=== PATIENT | female | born 1990 | race Caucasian/White ===

== ENCOUNTER 2017-12-03 01:54 | Inpatient (IN) | END 2017-12-03 17:35 | disposition home or self-care (01) | DRG 770 ==

== ENCOUNTER 2019-01-10 17:52 | Outpatient (CLI) | payer OTHER ==
[~2019-01-10] VITALS: Ht 157.5 cm; Wt 98.8 kg
[2019-01-10 18:10] VITALS: Ht 157.5 cm; Wt 98.8 kg
--- NOTE | 2019-01-10 20:54 | PN ---
Date/Time of Note Date/Time of Note DATE: 01/10/19 TIME: 20:52 OB Subjective Subjective Subjective IUP 38 6/7 c/o epigastric pain r/o labor h/o CS X 1 OB Objective Heart: Rhythm Normal Abdomen: WNL Cervical Dilatation: None Membranes: Intact Contractions on Admission: >10 Minutes Apart Intensity: Mild OB Assessment/Plan Reason for admission: other (IUP 38 6/7, h/o CS x1, r/o labor, pain level 3/10) Induction Method: other (IV hydration, NST) ENE GILMAN MD January 10, 2019 20:54
[2019-01-10] MEDS ORDERED: LACTATED RINGER'S 1,000 ML IV SCH (21:00)
[2019-01-10] MEDS ORDERED: LACTATED RINGER'S 1,000 ML IV ONE (21:00)
--- NOTE | 2019-01-11 00:37 | TRIAGE ---
OB Triage Datetime Report Generated by CPN: 01/11/2019 00:37 Datetime: 01/10/2019 19:28 Stage of : OB Triage Monitor Mode: External Resting Tone [place]: Relaxed Monitor Mode: External US Datetime: 01/10/2019 19:17 Membrane Status: Intact Datetime: 01/10/2019 19:14 Stage of : OB Triage Labor Evaluation Frequency: 3-6 Monitor Mode: External Duration (sec)2399: 30-90 Quality: Mild Pattern: Normal: <= 5 Contractions in 10 Minutes Resting Tone [place]: Relaxed Heart Rate FHR Baseline Rate: 130 Monitor Mode: External US FHR Baseline Changes: No Baseline Change Variability: Moderate 6-25 bpm Accelerations: 15X15 Decelerations: None Category: Category I Pain Assessment Pain Scale: 5 Pain Presence: Intermittent Pain Type: Pressure; Ache Pain Location: Back Datetime: 01/10/2019 18:36 Vaginal Exam Dilatation (cms): 1.0 Effacement (%): 50 Station: -2 Exam By: Vitaliy RG Vaginal Bleeding: None Cervix, Consistency: Soft Cervix, Position: Posterior Presentation 'A': Cephalic Datetime: 01/10/2019 18:35 Labor Evaluation Frequency: 13-15 Monitor Mode: External Duration (sec)2399: 50-70 Quality: Mild Pattern: Normal: <= 5 Contractions in 10 Minutes Resting Tone [place]: Relaxed Heart Rate FHR Baseline Rate: 135 Monitor Mode: External US Variability: Moderate 6-25 bpm Accelerations: 10X10 Decelerations: None Category: Category I Pain Assessment Pain Scale: 6 Pain Goal: 3 Datetime: 01/10/2019 18:15 Assessment Type: Triage Maternal Assessment Level of Consciousness: Fully Conscious DTR's/Clonus: DTRs 2+; No Clonus Headache: Denies Blurred Vision: No Respiratory Effort: Unlabored; Regular Rhythm; Equal Expansion Breath Sounds, Left: Clear and Equal Breath Sounds, Right: Clear and Equal Nausea/Vomiting: Denies RUQ Epigastric Pain: Denies Lower Extremities Edema: None Degree: None Upper Extremities Edema: None Degree: None Facial Edema: None Fall Risk Assessment History of Falling: (0) No Secondary Diagnosis: (0) No Ambulatory Aid: (0) Bedrest/Nurse Assist IV Therapy: (0) No Gait: (0) Normal/Bedrest/Immobile Mental Status: (0) Oriented to Own Ability Fall Score: 0 Fall Risk Score Definition: No Risk: No action required Datetime: 01/10/2019 18:12 Time of Arrival: 01/10/2019 17:40 EGA: 38.6 Arrived By: Wheelchair Arrived From: Home Chief Complaint: c/o cramping on and off since this morning. Movement: Present Contractions: Irregular Rupture of Membranes: Denies Vaginal Discharge: Denies Recent Sexual Intercouse: Denies Abdominal Trauma: Not Applicable Patient Complaints: Cramping Additional Patient Complaints: Hx c/s x 1 Time Provider Notified: 01/10/2019 19:00 Provider Notified: Dr Pires Initial Plan: MONITOR, VE
== END 2019-01-10 22:57 | disposition home or self-care (01) ==
LOC: OBT 17:52 → L-D 17:53 → OBT 22:57
PROVIDERS: ATTEND Obstetrics & Gynecology
DX: O26.893 Other specified pregnancy related conditions, third trimester (principal); R10.13 Epigastric pain; O34.212 Maternal care for vertical scar from previous cesarean delivery; Z3A.38 38 weeks gestation of pregnancy
CPT/HCPCS: 36415; 96360; J7120; Z7500; G0463

== ENCOUNTER 2019-01-13 07:14 | Inpatient (IN) | payer OTHER ==
[~2019-01-13] VITALS: Ht 160 cm; Wt 98.5 kg
[2019-01-13 07:50] VITALS: BP 110/83; PULSE 92; RESP 18
[2019-01-13 07:52] VITALS: Ht 160 cm; Wt 98.5 kg
[2019-01-13] MEDS ORDERED: OXYTOCIN 30 UNITS/LR 500 ML IV PRN ×2 (08:00→12:30)
[2019-01-13] MEDS ORDERED: METHYLERGONOVINE 0.2 MG INJ IM PRN ×2 (08:00→12:30)
[2019-01-13] MEDS ORDERED: MISOPROSTOL 200 MCG TAB PR PRN ×2 (08:00→12:30)
[2019-01-13] MEDS ORDERED: CARBOPROST 250 MCG INJ IM PRN ×2 (08:00→12:30)
--- NOTE | 2019-01-13 08:46 | PREAC ---
Date/Time of Note Date/Time of Note DATE: 01/13/19 TIME: 08:45 Anesthesia Eval and Record Evaluation Time Pre-Procedure Interview DATE: 01/13/19 TIME: 08:45 Age 28 Sex female NPO: 8 hrs Preoperative diagnosis iup at 39 weeks Planned procedure repeat c section Past Medical History Past Medical History: Includes GI: Obesity Surgery & Anesthesia Issues No known issue Meds Anticoagulation: No Beta Mariusz within 24 hr: No Reason Beta Mariusz not given: Pt. not on B-Mariusz Reported Medications [none] Unknown Strength No Conflict Check 12/02/17 Current Medications Oxytocin/Lactated Ringer's 500 ml @ 0 mls/hr ONCE PRN IV .VAGINAL BLEEDING; Start 01/13/19 at 08:00 Methylergonovine Maleate (Methergine) 0.2 mg ONCE PRN IM .VAGINAL BLEEDING; Start 01/13/19 at 08:00 Carboprost Tromethamine (Hemabate) 250 mcg ONCE PRN IM .VAGINAL BLEEDING; Start 01/13/19 at 08:00 Misoprostol (Cytotec) 1,000 mcg ONCE PRN NV .VAGINAL BLEEDING; Start 01/13/19 at 08:00 Lactated Ringer's 1,000 ml @ 125 mls/hr Q8H IV ; Start 01/13/19 at 08:00 Meds reviewed: Yes Allergies Coded Allergies: No Known Allergy (Unverified , 12/02/17) Allergies Reviewed: Yes Labs/Studies Labs Reviewed: Reviewed by anesthesiologist Result Diagram: 01/13/19 0810 Laboratory Tests 01/13/19 08:10 test: Positive Pre-procedure Exam Last vitals Vital Signs Date Temp Pulse Resp B/P (MAP) Pulse Ox O2 O2 Flow FiO2 Time Delivery Rate 01/13/19 98.2 92 18 110/83 07:50 (92) Airway: Adequate mouth opening, Adequate thyromental dist Mallampati: Mallampati II Teeth: Normal Lung: Normal Heart: Normal ASA Physical Status ASA physical status: 2 Emergency: None Planned Anesthetic Neuraxial: Spinal Planned Pain Management Sub-arachniod narcotics Pre-operative Attestations Prior to commencing anesthesia and surgery, the patient was re-evaluated, there was verification of: *The patient's identity *The results of appropriate recent lab work and preoperative vital signs *The above evaluation not changing prior to induction *Anesthetic plan, risk benefits, alternative and complications discussed with patient/family; questions answered; patient/family understands, accepts and wishes to proceed. ALEC RICO January 13, 2019 08:46
[2019-01-13] MEDS ORDERED: morphine SULFATE/PF (10 MG/10 ML) INJ ONE (08:47)
[2019-01-13] MEDS ORDERED: FENTAnyl 50 MCG/ML VIAL ONE (08:48)
[2019-01-13] MEDS: LACTATED RINGER'S 1,000 ML IV SCH ×2 (08:50→17:39)
[2019-01-13] MEDS ORDERED: CEFAZOLIN 2 GM/50 ML (PMX) 50 ML IVPB ONE (09:38)
[2019-01-13] MEDS ORDERED: PHENYLephrine (100 MCG/ML) 10ML SYG ONE (09:44)
[2019-01-13] MEDS ORDERED: PHENYLephrine 10 MG INJ ONE (09:44)
--- NOTE | 2019-01-13 09:52 | PREOPHP ---
DATE OF ADMISSION: 01/13/2019 HISTORY OF PRESENT ILLNESS: Ms. Julieta Garcia is a 28-year-old 3, para 1, EDC 01/18/2019, i ntrauterine at 39 weeks gestational age, admitted today for elective repeat delive ry. She denies any contractions, vaginal bleeding, or discharge. Her care took place with Dr. Black. PAST MEDICAL HISTORY: None. MEDICATIONS: vitamins. PAST SURGICAL HISTORY: x1 previous section. OBSTETRIC HISTORY: x1 previous , x1 missed AB. GYNECOLOGIC HISTORY: 12, regular 3 to 4 days. She denies any sexually transmitted infection. Sexua lly active with 1 partner. SOCIAL HISTORY: She denies any smoking, drugs or alcohol. FAMILY HISTORY: None. REVIEW OF SYSTEMS: All within normal except history of present illness. PHYSICAL EXAMINATION: HEENT: Within normal. LUNGS: CTA bilateral. CARDIOVASCULAR: S1, S2, regular rhythm. ABDOMEN: Gravid, nontender. Negative CVA bilateral. Positive vertical scar secondary to history of previous section. EXTREMITIES: Negative edema. No calf tenderness. PELVIC: Vaginal exam deferred. heart tracing category 1. ASSESSMENT: Intrauterine at 39 weeks' gestational age, previous section x1, antoinette es elective repeat delivery. Declined vaginal after . PLAN: Consent for repeat delivery. Risks, benefits and alternatives explained. All questi ons were answered. Dictated By: VANGIE OSPINA/NTS Conf#: [id number] DID#: [id number] CC: VANGIE FAIRBANKS MD;*EndCC*
[2019-01-13] MEDS ORDERED: ONDANSETRON 4 MG INJ ONE (10:28)
[2019-01-13] MEDS ORDERED: DEXAMETHASONE 4 MG/ML 1 ML INJ ONE (10:28)
[2019-01-13] MEDS ORDERED: HYDROmorphONE 0.5 MG/0.5 ML SYG IV PRN ×2 (11:00)
[2019-01-13] MEDS ORDERED: NALOXONE (0.4 MG/ML) INJ IV PRN (11:00)
[2019-01-13] MEDS ORDERED: ZOLPIDEM 5 MG TAB PO PRN (11:00)
[2019-01-13] MEDS ORDERED: DIPHENHYDRAMINE 50 MG INJ IV PRN (11:00)
[2019-01-13] MEDS ORDERED: ONDANSETRON 4 MG INJ IV PRN (11:00)
--- NOTE | 2019-01-13 12:04 | OPPN ---
Date/Time of Note Date/Time of Note DATE: 01/13/19 TIME: 11:55 Operative Report Planned Procedure Procedure date January 13, 2019 Procedure(s) repeat low transverse CD Performed by see signature line Floor Representative: SAVANNA HERNANDEZ MD 2nd Floor Representative none Anesthesiologist: ALEC RICO Pre-procedure diagnosis iup at 39 wks ga, previous CD, desires elective repeat CD [id number] Anesthesia Type: Npukp2a spinal Post-Procedure Post-procedure diagnosis same Findings A viable female 9/9 weight 7lb 9 oz, normal uterus, tubes and ovaries Estimated Blood Loss: 500 - 600 mls Specimen(s) none Grafts/Implant(s) none Complication(s) none VANGIE FAIRBANKS MD January 13, 2019 12:04
[2019-01-13] MEDS ORDERED: OXYTOCIN 30 UNITS/LR 500 ML IV SCH (12:05)
[2019-01-13] MEDS: CEFAZOLIN 2 GM/50 ML (PMX) 50 ML IVPB SCH ×2 (12:21→21:25)
[2019-01-13] MEDS: KETOROLAC 30 MG INJ IV PRN ×2 (12:22→21:01)
[2019-01-13] MEDS ORDERED: OXYCODONE/ACETAMINOPHEN (5/325) TAB PO PRN (12:30)
[2019-01-13] MEDS ORDERED: NACL 0.9% 3 ML SYG IV SCH (12:30)
[2019-01-13] MEDS ORDERED: LANOLIN HPA 1 PKT TOP PRN (12:30)
--- NOTE | 2019-01-13 12:41 | PAC ---
Date/Time of Note Date/Time of Note DATE: 01/13/19 TIME: 12:41 Post-Anesthesia Notes Post-Anesthesia Note Last documented vital signs Vital Signs Date Temp Pulse Resp B/P (MAP) Pulse Ox O2 O2 Flow FiO2 Time Delivery Rate 01/13/19 98.2 92 18 110/83 1240 (92) Activity: WNL Respiratory function: WNL Cardiovascular function: WNL Mental status: Baseline Pain reasonably controlled: Yes Hydration appropriate: Yes Nausea/Vomiting absent: Yes ALEC RICO January 13, 2019 12:41
[2019-01-13 13:30] VITALS: BP 122/72; PULSE 62; RESP 18
[2019-01-13 14:30] VITALS: BP 112/64; PULSE 65; RESP 19
[2019-01-13 16:00] VITALS: BP 116/66; PULSE 66; RESP 18
[2019-01-13 19:40] VITALS: BP 126/76; PULSE 72; RESP 19
[2019-01-14] MEDS: LACTATED RINGER'S 1,000 ML IV SCH ×3 (02:32→16:00)
[2019-01-14 03:40] VITALS: BP 102/56; PULSE 73; RESP 20
[2019-01-14] MEDS: CEFAZOLIN 2 GM/50 ML (PMX) 50 ML IVPB SCH (04:30)
[2019-01-14] MEDS: KETOROLAC 30 MG INJ IV PRN (05:34)
[2019-01-14] MEDS ORDERED: CEFAZOLIN 2 GM/50 ML (PMX) 50 ML IVPB SCH ×2 (06:30→15:30)
[2019-01-14 08:00] VITALS: BP 94/53; PULSE 72; RESP 19
--- NOTE | 2019-01-14 09:41 | OPR ---
DATE OF OPERATION: 01/13/2019 PREOPERATIVE DIAGNOSIS: Intrauterine at 39 weeks gestational age, previous , barbara res elective repeat delivery. Declined vaginal after . POSTOPERATIVE DIAGNOSES: Intrauterine at 39 weeks gestational age, previous , zoila ires elective repeat delivery. Declined vaginal after . OPERATION PERFORMED: Repeat low transverse delivery. SURGEON: Fam Harris MD METROLOGY TECHNICIAN: Dr. Savanna Vee. ANESTHESIOLOGIST: Dr. Abdiel Seaman. ANESTHESIA: Spinal. COMPLICATIONS: None. ESTIMATED BLOOD LOSS: 500 mL. FINDINGS: A viable female, 9 and 9 respectively at 1 and 5 minutes, weight 7 pounds 9 ounces. Normal uterus, tubes and ovaries. DESCRIPTION OF PROCEDURE: After explaining the risks, benefits and alternatives, the patient had con sent signed in chart, the patient was taken to the operating room where spinal anesthesia was found t o be adequate. She was then prepared and draped in normal sterile fashion in dorsal supine position with a leftward tilt. A Pfannenstiel skin incision was then made with a scalpel and carried to the u nderlying of the fascia. The fascia was incised in the midline and incision was extended laterally w ith Tobias scissors. The superior aspect of fascial incision was grasped with curved clamps, elevated and the underlying rectus muscles dissected off bluntly. Attention was then turned to the inferior a spect of the incision which in similar fashion was grasped, tented up with curved clamps and rectus m uscle dissected off bluntly. The rectus muscles were in midline, peritoneum identified, te nted up sharply with Metzenbaum scissors. This incision was extended superiorly and inferiorly with good visualization of the bladder. The bladder blade was then inserted and a lower uterine segment i ncised in transverse fashion with the scalpel. The uterine incision was extended laterally. The milton dder blade was removed and the 's head delivered atraumatically. The nose and mouth were sucti oned and cord clamped and cut. The was handed off to awaiting master carpenter. The placenta was then removed. The uterus was exteriorized and cleared of all clots and debris. The uterine incisio n was repaired with 1-0 chromic in a running locked fashion. A second layer of same suture was used for imbrication obtaining excellent hemostasis. The uterus was returned to the abdomen. The gutters were cleared of all clots. The peritoneum and rectus abdominis muscles reapproximated with 2-0 Vicr yl in interrupted fashion. The fascia was reapproximated with 0 Vicryl in a running fashion. The echavarria bcutaneous tissue was reapproximated with 2-0 plain gut in a running fashion. The skin was closed wi th absorbable brittni. The patient tolerated procedure well. Sponge, lap and needle counts were cor rect. The patient was taken to recovery room in stable condition. Dictated By: FAM OSPINA/HIGINIO Conf#: [id number] DID#: [id number] CC: SAVANNA VEE MD;*End*
[2019-01-14 16:00] VITALS: BP 106/64; PULSE 81; RESP 20
[2019-01-14] MEDS: IBUPROFEN 600 MG TAB PO SCH ×2 (18:11→23:46)
--- NOTE | 2019-01-14 18:13 | QN ---
Documentation Comment progress note pod 1 patient was seen and evaluated no complaints vs stable afebrile ab dressing clean/dry no distention extremity no edema no calf tenderness a/ sp cd with btl pod 1 stable afebrile p/ encourage ambulation iron supplement VANGIE FAIRBANKS MD January 14, 2019 18:13
[2019-01-14 20:00] VITALS: BP 102/66; PULSE 78; RESP 18
[2019-01-14] MEDS: FERROUS SULFATE (EC) 325 MG TAB PO SCH (20:42)
[2019-01-15 03:35] VITALS: BP 116/56; PULSE 77; RESP 18
[2019-01-15] MEDS: IBUPROFEN 600 MG TAB PO SCH ×3 (05:33→18:20)
[2019-01-15 08:00] VITALS: BP 109/65; PULSE 70; RESP 20
[2019-01-15] MEDS: FERROUS SULFATE (EC) 325 MG TAB PO SCH ×2 (08:51→22:05)
[2019-01-15 16:11] VITALS: BP 120/80; PULSE 81; RESP 22
--- NOTE | 2019-01-15 18:14 | PD.PPDC ---
MEDICINAL CHEMIST Discharge Instruction Condition [id number] Patient Condition: Ovkap6d Fair Diet Xdiyb8Gr Diet: Derkw4a Resume Regular Diet Activity/Restrictions Warbe5En Activity: Krrjf9v Normal Activity May Shower [id number] Restrictions: Dpaej3f No Exercising No Lifting No Driving No Sexual Activity Nothing in the Vagina No Lloyd No Tampons, douche Follow-up Follow-up with Physician: 2, Week/Weeks Return to clinic for Zrvie0Rm ATM TECHNICIAN Instructions: Koztv3r Fever greater than 101 Chills Worsening abdominal pain Excessive Vaginal Bleeding More than 2 pads per hour Unable to tolerate diet Vytai7Au OB Instructions: Zcjjy6g Breast Tenderness Depression Blurried Vision Headache [id number] Surgical Instructions: Bujsx0c Incisional Drainage Incisional Redness VANGIE FAIRBANKS MD January 15, 2019 18:14
--- NOTE | 2019-01-15 18:16 | QN ---
Documentation Comment progress note pod 2 patient was seen and evaluated no complaints vs stable afebrile ab c/d/i no distention extremity no edema no calf tenderness a/ sp cd with btl pod 2 stable afebrile p/ encourage ambulation discharge home tomorrow VANGIE FAIRBANKS MD January 15, 2019 18:16
[2019-01-15] MEDS ORDERED: NA PHOSPHATE/BIPHOS 133 ML ENEMA PR PRN (19:00)
[2019-01-15 20:20] VITALS: BP 109/64; PULSE 92; RESP 18
--- NOTE | 2019-01-15 20:53 | DS ---
DATE OF ADMISSION: 01/13/2019 DATE OF DISCHARGE: 01/16/2019 PRIMARY DIAGNOSES: Intrauterine at 39 weeks gestational age, previous , desires e lective repeat delivery, declined . PROCEDURE: Repeat low transverse delivery. CONDITION ON DISCHARGE: Stable. ACTIVITY: None per vaginal, no heavy lifting x6 weeks. DIET: Regular. MEDICATIONS ON DISCHARGE: 1. Motrin. 2. Iron. 3. Colace. DISCHARGE SUMMARY: Ms. Julieta Garcia underwent a repeat low transverse delivery on 019. She had a viable female, 9 and 9 respectively at 1 and 5 minutes, weight 7 pounds 9 ounce s. She had an uneventful postop day 1 and 2. She was discharged on postop day 3. Her incision is c lean, dry, and intact. She is ambulating, tolerating diet, positive flatulence, positive bowel movem ent. She will follow up in clinic in 2 weeks for /postop care. Dictated By: VANGIE OSPINA/HIGINIO Conf#: [id number] DID#: [id number]
[2019-01-16] MEDS: OXYCODONE/ACETAMINOPHEN (5/325) TAB PO PRN ×2 (00:28→10:33)
[2019-01-16] MEDS: IBUPROFEN 600 MG TAB PO SCH ×3 (00:28→12:32)
[2019-01-16 05:00] VITALS: BP 108/76; PULSE 73; RESP 20
[2019-01-16 08:00] VITALS: BP 108/76; PULSE 73; RESP 18
[2019-01-16] MEDS: FERROUS SULFATE (EC) 325 MG TAB PO SCH (10:33)
[2019-01-16] MEDS ORDERED: DIPHTH/TET/ACEL PERTUSS (ADULT) 0.5 ML VIAL IM* ONE (13:30)
--- NOTE | 2019-01-17 14:52 | DELSUM ---
Delivery Summary A-C Datetime Report Generated by CPN: 01/17/2019 14:52 DELIVERY PERSONNEL Business Education Instructor: De La Torre, Kim MATERNAL INFORMATION Delivery Anesthesia: Spinal Medications in Delivery: 2G ANCEF Delivery QBL (ml): 700 Placenta Cultured: No Maternal Complications: None LABOR SUMMARY EDC: 01/18/2019 00:00 No. Babies in Womb: 1 Attempted: No Labor Anesthesia: None LABOR INFORMATION Reason for Induction: Not Applicable Oxytocin: N/A Group B Beta Strep: Negative Antibiotics # of Doses: 0 Steroids Given: None Reason Steroids Not Administered: Not Applicable MEMBRANES Membranes Rupture Method: Artificial Rupture of Membranes: 01/13/2019 10:02 Length of Rupture (hr): 0.02 Amniotic Fluid Color: Clear Amniotic Fluid Amount: Moderate Amniotic Fluid Odor: None STAGES OF LABOR Stage 3 hr: 0 Stage 3 min: 2 CSECTION DELIVERY Primary Indication: Repeat Elective CSection Urgency: Elective CSection Incidence: Repeat Labor: No Labor Elective: Elective CSection Incision: Lower Uterine Transverse BABY A INFORMATION Infant Delivery Date/Time: 01/13/2019 10:03 Method of Delivery: Born in Route : No : N/A Forceps: N/A Vacuum Extraction: N/A Shoulder Dystocia : N/A SHOULDER DYSTOCIA BABY A Infant Delivery Date/Time: 01/13/2019 10:03 PRESENTATION/POSITION BABY A Presentation: Cephalic Cephalic Presentation: Vertex Vertex Position: Left Occipital Anterior Breech Presentation: N/A PLACENTA INFORMATION BABY A Placenta Delivery Time : 01/13/2019 10:05 Placenta Method of Delivery: Manual Removal Placenta Status: Delivered SCORES BABY A Heart Rate 1 min: >100 bpm Resp Effort 1 min: Good Cry Reflex Irritability 1 min: Cough/Sneeze/Pulls Away Muscle Tone 1 min: Active Motion Color 1 min: Body [place], Extremit Blue Resuscitation Effort 1 min: Tactile Stimulation SCORE 1 MIN: 9 Heart Rate 5 min: >100 bpm Resp Effort 5 min: Good Cry Reflex Irritability 5 min: Cough/Sneeze/Pulls Away Muscle Tone 5 min: Active Motion Color 5 min: Body [place], Extremit Blue Resuscitation Effort 5 min: Tactile Stimulation SCORE 5 MIN: 9 INFANT INFORMATION BABY A Gestational Age at Delivery: 39.3 Gestational Status: Full Term- 39- 40.6 Weeks Outcome : Liveborn Condition : Stable Sex: Female IDENTIFICATION/MEDS BABY A ID Band Number: [id number] ID Band Location: Right Leg; Left Arm Sensor Applied: Yes Sensor Number: [id number] Sensor Location : Cord Clamp Vitamin K Given : Aquamephyton 0.5 mg IM; Left Thigh Erythromycin Given: Given Both Eyes WEIGHT/LENGTH BABY A Birthweight (gm): 3420 Weight (lb): 7 Infant Weight (oz): 9 Length (in): 19.00 Length (cm): 48.26 CORD INFORMATION BABY A No. Cord Vessels: 3 Nuchal Cord : N/A Suction: Mouth; Nose ASSESSMENT BABY A Complications: None Physical Findings at Delivery: Within Normal Limits Infant Respirations: Appears Normal Flakeboard Line Tender/ALS Called : Yes Transferred To: Remains with Mother
== END 2019-01-16 14:50 | disposition home or self-care (01) | DRG 788 ==
LOC: L-D 07:14 → PP1 14:02
PROVIDERS: ADMIT Obstetrics & Gynecology; ATTEND Obstetrics & Gynecology
PROC: 10D00Z1 Extraction of Products of Conception, Low, Open Approach (ICD-10-PCS; principal; 2019-01-13 09:00)
DX: O34.212 Maternal care for vertical scar from previous cesarean delivery (principal); O99.214 Obesity complicating childbirth; E66.9 Obesity, unspecified; Z3A.39 39 weeks gestation of pregnancy; Z37.0 Single live birth; Z23 Encounter for immunization
CPT/HCPCS: 85025; 85610; 85730; 86592; 86850; 86900; 86901; 90715; 99464; J0690; J1100; J1170; J1885; J2274; J2370; J2405; J2590; J3010; J7120